=== PATIENT | male | born 1990 | race African-American/Black ===

== ENCOUNTER 2024-10-09 15:01 | Emergency (ER) | payer SELFPAY ==
[~2024-10-09] VITALS: Ht 157.5 cm; Wt 118.0 kg
[2024-10-09 15:07] VITALS: BP 150/107; PULSE 103; RESP 18; TEMP 36.8; O2SAT 100
[2024-10-09 16:31] LABS: BASOPHILS % 0.5 % (0.0-2.0); DIFFERENTIAL COMMENT 0; EOSINOPHILS % 0.7 % (0.0-5.0); HEMATOCRIT. 47.5 % (42.0-52.0); HEMOGLOBIN. 16.6 g/dL (14.0-18.0); MEAN CORPUSCULAR HGB CONC 34.8 g/dL (31.0-37.0); MEAN CORPUSCULAR VOLUME 74.5 fL (80.0-94.0); MEAN PLATELET VOLUME 8.9 fl (7.4-10.4); MONOCYTES % 5.2 % (2.0-8.0); NEUTROPHILS % 49.6 % (40.0-76.0); PLATELET 275 x1000/uL (130-400); RED BLOOD CELL COUNT 6.37 mill/uL (4.7-6.1); RED CELL DISTRIBUTION WIDTH 13.5 % (11.6-14.6); WHITE BLOOD COUNT 9.7 x1000/uL (4.5-11.0)
[2024-10-09 16:39] LABS: CHLORIDE 104 mEq/L (98-107); POTASSIUM 3.8 mEq/L (3.5-5.1); SODIUM 136 mEq/L (136-145)
[2024-10-09 16:40] LABS: CARBON DIOXIDE 25 mEq/L (21-32)
[2024-10-09 16:41] LABS: CALCIUM 8.8 mg/dL (8.7-10.4)
[2024-10-09 16:45] LABS: CREATININE 0.9 mg/dL (0.6-1.3); GLUCOSE 279 mg/dL (70-105)
[2024-10-09 16:46] LABS: UREA NITROGEN BLOOD 9 mg/dL (9-23)
[2024-10-09] MEDS ORDERED: DIPH25TA62 PO (17:16)
[2024-10-09] MEDS ORDERED: HYDR453.3 TP (17:16)
== END 2024-10-09 17:30 | disposition home or self-care (01) ==
LOC: ER 15:01
DX: E11.65 Type 2 diabetes mellitus with hyperglycemia (principal); I10 Essential (primary) hypertension; Z79.899 Other long term (current) drug therapy
CPT/HCPCS: 36415; 71045; 80048; 85025; 99284

== ENCOUNTER 2024-10-11 16:30 | Emergency (ER) | payer SELFPAY ==
[~2024-10-11] VITALS: Ht 157.5 cm; Wt 97.0 kg
[~2024-10-11 16:30] MED LIST: DIPH25TA62 PO; HYDR453.3 TP
[2024-10-11 16:36] VITALS: O2SAT 97
[2024-10-11 17:11] LABS: BASOPHILS % 0.9 % (0.0-2.0); DIFFERENTIAL COMMENT 0; EOSINOPHILS % 0.3 % (0.0-5.0); HEMOGLOBIN. 16.4 g/dL (14.0-18.0); LYMPHOCYTES % 41.3 % (20.0-50.0); MEAN CORPUSCULAR HEMOGLOBIN 26.3 pg (28.0-32.0); MEAN CORPUSCULAR HGB CONC 35.6 g/dL (31.0-37.0); MEAN CORPUSCULAR VOLUME 73.9 fL (80.0-94.0); MEAN PLATELET VOLUME 8.9 fl (7.4-10.4); MONOCYTES % 5.5 % (2.0-8.0); PLATELET 308 x1000/uL (130-400); RED BLOOD CELL COUNT 6.23 mill/uL (4.7-6.1); RED CELL DISTRIBUTION WIDTH 13.6 % (11.6-14.6); WHITE BLOOD COUNT 12.1 x1000/uL (4.5-11.0)
[2024-10-11 17:18] LABS: CHLORIDE 99 mEq/L (98-107); POTASSIUM 3.6 mEq/L (3.5-5.1); SODIUM 133 mEq/L (136-145)
[2024-10-11 17:19] LABS: CALCIUM 9.2 mg/dL (8.7-10.4); CARBON DIOXIDE 25 mEq/L (21-32)
[2024-10-11 17:24] LABS: CREATININE 0.8 mg/dL (0.6-1.3); GLUCOSE 298 mg/dL (70-105); UREA NITROGEN BLOOD 10 mg/dL (9-23)
[2024-10-11] MEDS ORDERED: DEXTROSE 50% WATER 50ML SYRINGE IV PRN (18:30)
[2024-10-11] MEDS ORDERED: ONDA-239 PO (18:52)
[2024-10-11] MEDS ORDERED: CIPR1DRO2 LEFT EAR (18:52)
[2024-10-11] MEDS: BLOOD SUGAR DIAGNOSTIC STRIP TEST SCH (19:25)
[2024-10-11] MEDS: ONDANSETRON 4MG ODT PO ONE (19:26)
[2024-10-11] MEDS: INSULIN LISPRO 100 UNITS/ML SUBCUT STA (19:28)
[2024-10-11] MEDS ORDERED: HYDR99LO MT (19:32)
[2024-10-11 19:50] VITALS: BP 144/105; PULSE 114; RESP 18; TEMP 36.7; O2SAT 97
[2024-10-11] MEDS: METHYLPREDNISOLONE SOD SUCC 125MG/2ML (ACT-O-VIAL) IM ONE (19:50)
[2024-10-11] MEDS: DIPHENHYDRAMINE 50MG/ML VIAL IM ONE (19:50)
== END 2024-10-11 19:51 | disposition home or self-care (01) ==
LOC: ER 16:30
DX: E11.65 Type 2 diabetes mellitus with hyperglycemia (principal); H60.92 Unspecified otitis externa, left ear; I10 Essential (primary) hypertension; Z79.899 Other long term (current) drug therapy
CPT/HCPCS: 80048; 82010; 82962; 85025; 36415; 96372; 99284; Q0162; J1200; J1815; J2919; Z7610